=== PATIENT | male | born 1965 | race Caucasian/White ===

== ENCOUNTER 2019-10-22 15:59 | Emergency (ER) | payer SELFPAY ==
[2019-10-22 16:43] LABS: Absolute Lymphocytes (CBC) 0.9 K/uL (0.7-4.9); Basophils % 2.1 % (0-1.3); Hematocrit 48.8 % (39.6-49.0); Lymphocytes % 18.4 % (15.3-44.8); MPV 8.1 fL (7.6-11.3); RBC Red Blood Cell Count 5.09 M/uL (4.33-5.43)
[2019-10-22] MEDS ORDERED: NA CHLORIDE 0.9% 1,000 ML ONE (16:53)
[2019-10-22 17:01] LABS: ALT/SGPT 37 U/L (12-78); AST/SGOT 44 U/L (15-37); Albumin 3.1 g/dL (3.4-5.0); Alkaline Phosphatase 87 U/L (45-117); BUN Blood Urea Nitrogen 11 mg/dL (7-18); Bicarbonate 26 mmol/L (21-32); Bilirubin Direct 0.2 mg/dL (0-0.2); Bilirubin Total 0.6 mg/dL (0.2-1.0); Glucose Level 97 mg/dL (74-106); Lipase 426 U/L (73-393); Potassium 3.3 mmol/L (3.5-5.1); Protein, Total 7.6 g/dL (6.4-8.2); Sodium Level 139 mmol/L (136-145)
--- NOTE | 2019-10-22 17:48 | RAD REPORT ---
EXAM DESCRIPTION: CT - Abdomen Pelvis W Contrast - 10/22/2019 5:28 pm CLINICAL HISTORY: ABD PAIN, fever, diarrhea COMPARISON: No comparisons TECHNIQUE: Biphasic, helical CT imaging of the abdomen and pelvis was performed following 100 ml non -ionic IV contrast. Oral contrast was given. All CT scans are performed using dose optimization technique as appropriate and may include automated exposure control or mA/KV adjustment according to patient size. FINDINGS: No suspicious findings in the lung bases. Diffuse fatty infiltration present in the liver. No focal liver lesion identified. Portal vein is nor mal. No splenic abnormality seen. Accessory splenic nodule is present. No acute pancreatic process. G allbladder and biliary tree are also without suspicious finding. Symmetric renal function is seen with no hydronephrosis or suspicious renal mass. No pyelonephritis o r acute parenchymal process. Parapelvic cysts are present. No acute bladder abnormality. No adrenal a bnormalities. No stomach or small bowel abnormality. There is no appendicitis. Cecum to splenic flexure of the colo n shows no significant finding. Circumferential wall thickening involves the rectum, sigmoid colon an d distal descending colon. There is stranding in the adjacent. No focal mass lesion. No free air, fr ee fluid or pneumatosis. No hernia, mass or bulky lymphadenopathy. No suspicious bony findings. IMPRESSION: Nonspecific colitis pattern involving the rectum, sigmoid colon and distal portion of th e descending colon. No free air, mass or other emergent finding. Diffuse fatty infiltration the liver.
--- NOTE | 2019-10-22 18:00 | EDPHYS ---
Physician Documentation [facility] Name: Beto Soto Age: 54 yrs Sex: Male : 1965 Arrival Date: 10/22/2019 Time: 16:02 Bed 13 Private MD: ED Physician Georges Castellon HPI: 10/21 17:04 This 54 yrs old Male presents to ER via Ambulatory with complaints of pm1 Abdominal Pain, Diarrhea, Fever. 17:04 The patient presents with abdominal pain in the lower abdomen. Onset: The pm1 symptoms/episode began/occurred abdominal pain onset 2 days ago. Diarrhea 10 days ago. Fever onset 3 days ago. The symptoms do not radiate. Associated signs and symptoms: Pertinent positives: diarrhea, Cough, Pertinent negatives: nausea and vomiting, chest pain, shortness of breath. The symptoms are described as sharp. Modifying factors: The symptoms are alleviated by nothing, the symptoms are aggravated by nothing. Severity of pain: in the emergency department the pain Worse but improved from last night. The patient has experienced a previous episode, and the symptoms today are exactly the same, March last year. Saw multiple physicians, had CT, EGD, labs and biopsy of lymph nodes in abdomen. No conclusive findings and the symptoms resolved. The patient has not recently seen a physician, has an appointment scheduled, Dr. Fernandez. Patient had a cough in addition to his abdomina pain, fever, and diarrhea. He got swabbed for COVID-19 and received his results today - negative. Since the result is negative he came to the ER to get his abdominal pain evaluted. Historical: - Allergies: 16:09 Sulfa (Sulfonamide Antibiotics); ll1 16:09 flu vaccine; ll1 - PMHx: 16:09 Hypertension; ll1 - PSHx: 16:09 shoulder sx; ll1 - Immunization history:: Flu vaccine is not up to date. - Social history:: Smoking status: Patient denies any tobacco usage or history of. Patient uses alcohol, admits to "couple of beers" a day. Patient/guardian denies using IV drugs. ROS: 17:11 Constitutional: Positive for fever, Negative for body aches. pm1 17:12 Neck: Negative for injury, pain, and swelling, Cardiovascular: Negative for chest pain, pm1 palpitations, and edema. 17:12 Back: Negative for injury and pain. 17:12 MS/Extremity: Negative for injury and deformity, Skin: Negative for injury, rash, and discoloration. 17:12 Neuro: Negative for headache, weakness, numbness, tingling, and seizure. 17:12 Respiratory: Positive for cough, Negative for shortness of breath. 17:12 Abdomen/GI: Positive for abdominal pain, diarrhea, Negative for nausea and vomiting, constipation. Exam: 17:12 Constitutional: This is a well developed, well nourished patient who is awake, alert, pm1 and in no acute distress. Head/Face: Normocephalic, atraumatic. Chest/axilla: Normal chest wall appearance and motion. Nontender with no deformity. No lesions are appreciated. Abdomen/GI: Soft, non-tender, with normal bowel sounds. No distension or tympany. No guarding or rebound. No evidence of tenderness throughout. 17:12 Back: No spinal tenderness. No costovertebral tenderness. Full range of motion. Skin: Warm, dry with normal turgor. Normal color with no rashes, no lesions, and no evidence of cellulitis. MS/ Extremity: Pulses equal, no cyanosis. Neurovascular intact. Full, normal range of motion. 17:12 Cardiovascular: Exam negative for acute changes, edema, Rate: normal, Rhythm: regular, Pulses: no pulse deficits are appreciated, Edema: is not appreciated. 17:12 Respiratory: Exam negative for acute changes, respiratory distress, shortness of breath, wheezing. 17:12 Neuro: Exam negative for acute changes, Orientation: is normal, Motor: is normal, moves all fours. Vital Signs: 14:15 BP 190 / 87; Pulse 67; Resp 18; Pulse Ox 100% ; ah 16:05 BP 124 / 80; Pulse 98; Resp 16; Temp 98.4; Pulse Ox 100% ; Weight 96.16 kg; Height 5 ll1 ft. 9 in. (175.26 cm); Pain 5/10; 16:45 BP 112 / 75; Pulse 77; Resp 16; Pulse Ox 96% ; ah 18:39 BP 124 / 80; Pulse 64; Resp 17; Pulse Ox 100% ; ah 16:05 Body Mass Index 31.31 (96.16 kg, 175.26 cm) ll1 MDM: 16:11 Patient medically screened. pm1 17:15 Data reviewed: vital signs. Data interpreted: Pulse oximetry: on room air is 100 %. pm1 Interpretation: normal. 17:55 Counseling: I had a detailed discussion with the patient and/or guardian regarding: the pm1 historical points, exam findings, and any diagnostic results supporting the discharge/admit diagnosis, lab results, radiology results, the need for outpatient follow up, for definitive care, a schedule manager. 18:24 Physician consultation: Fransisco Fernandez MD Following up with the patient's findings in pm1 the ER. Discussed with him the plan of care and he agrees with antibiotics and follow up with PCP or him in 1 week. 18:42 ED course: Patient without any bowel movement in the ER. If he did would send stool pm1 sample. 10/21 16:21 Order name: Basic Metabolic Panel; Complete Time: 17:03 pm1 10/21 16:21 Order name: CBC with Diff; Complete Time: 17:03 pm1 10/21 16:21 Order name: Creatinine for Radiology; Complete Time: 17:03 pm1 10/21 16:21 Order name: Hepatic Function; Complete Time: 17:03 pm1 10/21 16:21 Order name: Lipase; Complete Time: 17:03 pm1 10/21 18:15 Order name: Urine Dipstick--Ancillary (enter results); Complete Time: 18:36 eb 10/21 16:21 Order name: IV Saline Lock; Complete Time: 16:37 pm1 10/21 16:21 Order name: Labs collected and sent; Complete Time: 16:37 pm1 10/21 16:21 Order name: Urine Dipstick-Ancillary (obtain specimen); Complete Time: 18:16 pm1 10/21 16:21 Order name: CT Abd/Pelvis - IV Contrast Only; Complete Time: 17:53 pm1 10/21 16:21 Order name: NPO; Complete Time: 16:30 pm1 Administered Medications: 16:52 Drug: NS 0.9% 1000 ml Route: IV; Rate: 1000 ml; Site: right antecubital; 19:21 Follow up: Response: No adverse reaction 18:10 Drug: Flagyl 500 mg Volume: 100 ml; Route: IVPB; Rate: 200 ml/hr; Infused Over: 30 ah mins; Site: right antecubital; 19:21 Follow up: Response: No adverse reaction 18:10 Drug: Cipro 500 mg Route: PO; 19:21 Follow up: Response: No adverse reaction Disposition: 10/22/19 17:59 Discharged to Home. Impression: Colitis, Diarrhea, unspecified. - Condition is Stable. - Discharge Instructions: Food Choices to Help Relieve Diarrhea, Adult, Diarrhea, Adult, Colitis. - Prescriptions for Flagyl 500 mg Oral Tablet - take 1 tablet by ORAL route every 8 hours for 10 days; 30 tablet. Cipro 500 mg Oral Tablet - take 1 tablet by ORAL route every 12 hours for 10 days; 20 tablet. Bentyl 20 mg Oral Tablet - take 1 tablet by ORAL route every 6 hours As needed; 20 tablet. - Medication Reconciliation Form, Thank You Letter, Antibiotic Education, Prescription Opioid Use form. - Follow up: Emergency Department; When: As needed; Reason: Worsening of condition. Follow up: Private Physician; When: 2 - 3 days; Reason: Recheck today's complaints, Continuance of care, Re-evaluation by your physician. - Problem is new. - Symptoms have improved. Addendum: 10/24/2019 07:44 Co-signature as Attending Physician, Georges Castellon MD I agree with the assessment and k dr plan of care. Signatures: Dispatcher [employer] EDMS Georges Castellon MD MD [facility] Vega Adler NP FARM HELPER pm1 Aurea Melendez, RN RN Obed Osorio RN RN ll1 Corrections: (The following items were deleted from the chart) 10/21 18:00 17:59 10/22/2019 17:59 Discharged to Home. Impression: Colitis. Condition is Stable. pm1 Forms are Medication Reconciliation Form, Thank You Letter, Antibiotic Education, Prescription Opioid Use. Follow up: Emergency Department; When: As needed; Reason: Worsening of condition. Follow up: Private Physician; When: 2 - 3 days; Reason: Recheck today's complaints, Continuance of care, Re-evaluation by your physician. Problem is new. Symptoms have improved. pm1 19:24 18:00 10/22/2019 17:59 Discharged to Home. Impression: Colitis; Diarrhea, unspecified. Condition is Stable. Discharge Instructions: Colitis. Prescriptions for Flagyl 500 mg Oral Tablet - take 1 tablet by ORAL route every 8 hours for 10 days; 30 tablet, Bentyl 20 mg Oral Tablet - take 1 tablet by ORAL route every 6 hours As needed; 20 tablet, Cipro 500 mg Oral Tablet - take 1 tablet by ORAL route every 12 hours for 10 days; 20 tablet. and Forms are Medication Reconciliation Form, Thank You Letter, Antibiotic Education, Prescription Opioid Use. Follow up: Emergency Department; When: As needed; Reason: Worsening of condition. Follow up: Private Physician; When: 2 - 3 days; Reason: Recheck today's complaints, Continuance of care, Re-evaluation by your physician. Problem is new. Symptoms have improved. pm1
--- NOTE | 2019-10-22 18:00 | ER ---
Nurse's Notes [facility] Name: Beto Soto Age: 54 yrs Sex: Male : 1965 Arrival Date: 10/22/2019 Time: 16:02 Bed 13 Private MD: Diagnosis: Colitis;Diarrhea, unspecified Presentation: 10/21 16:05 Chief complaint: Patient states: Diarrhea with abd pain and fever for 10 days. Chief ll1 complaint: Patient states: COVID test negative. Coronavirus screen: Coronavirus screen: Proceed with normal triage. Patient reports a cough. Patient denies shortness of breath or difficulty breathing. Patient reports a measured and/or subjective temperature greater than 100.4F. Patient denies travel on a cruise ship or to a country [facility] currently lists as an affected area. Patient denies contact with known and/or suspected case of COVID-19. Ebola Screen: Patient denies travel to an Ebola-affected area in the 21 days before illness onset. Initial Sepsis Screen: Does the patient meet any 2 criteria? Temp <36.0*C (96.8*F)) or > 38.3*C (100.9*F). Does the patient have a suspected source of infection? Yes: Acute abdominal pain. Risk Assessment: Do you want to hurt yourself or someone else? Patient reports no desire to harm self or others. Onset of symptoms was October 12, 2019. 16:05 Method Of Arrival: Ambulatory ll1 16:05 Acuity: ZEV 3 ll1 Historical: - Allergies: 16:09 Sulfa (Sulfonamide Antibiotics); ll1 16:09 flu vaccine; ll1 - PMHx: 16:09 Hypertension; ll1 - PSHx: 16:09 shoulder sx; ll1 - Immunization history:: Flu vaccine is not up to date. - Social history:: Smoking status: Patient denies any tobacco usage or history of. Patient uses alcohol, admits to "couple of beers" a day. Patient/guardian denies using IV drugs. Screenin:12 Abuse screen: Denies threats or abuse. Nutritional screening: No deficits noted. Tuberculosis screening: No symptoms or risk factors identified. Fall Risk None identified. Assessment: 16:15 General: Appears in no apparent distress. Behavior is calm, cooperative. Pain: ah Complains of pain in right lower quadrant and left lower quadrant Pain does not radiate. Quality of pain is described as crampy, sharp, Pain began 3 days ago Also complains of. Neuro: Level of Consciousness is awake, alert, Oriented to person, place, time, situation. Cardiovascular: Heart tones S1 S2 present Capillary refill < 3 seconds Patient's skin is warm and dry. Pulses are palpable in right radial artery, right dorsalis pedis artery, left radial artery and left dorsalis pedis artery. Respiratory: Airway is patent Respiratory effort is even, unlabored, Respiratory pattern is regular, symmetrical, Breath sounds are clear bilaterally. GI: Abdomen is distended, Bowel sounds present X 4 quads. Reports diarrhea, since 10 days Parent/caregiver reports the patient having pain. : No signs and/or symptoms were reported regarding the genitourinary system. EENT: No signs and/or symptoms were reported regarding the EENT system. Derm: No signs and/or symptoms reported regarding the dermatologic system. Musculoskeletal: No signs and/or symptoms reported regarding the musculoskeletal system. 17:30 Reassessment: Denies pain at this time. No needs voiced. 18:30 Reassessment: Finishing IV medications at this time and then will be ready for discharge. 19:23 Reassessment: Discharge instructions given at this time and education on prescriptions. Pt voiced understanding. Vital Signs: 14:15 BP 190 / 87; Pulse 67; Resp 18; Pulse Ox 100% ; ah 16:05 BP 124 / 80; Pulse 98; Resp 16; Temp 98.4; Pulse Ox 100% ; Weight 96.16 kg; Height 5 ll1 ft. 9 in. (175.26 cm); Pain 5/10; 16:45 BP 112 / 75; Pulse 77; Resp 16; Pulse Ox 96% ; ah 18:39 BP 124 / 80; Pulse 64; Resp 17; Pulse Ox 100% ; ah 16:05 Body Mass Index 31.31 (96.16 kg, 175.26 cm) ll1 ED Course: 16:02 Patient arrived in ED. mr 16:08 Triage completed. ll1 16:10 Vega Adler NP is PHCP. pm1 16:10 Arm band placed on Patient placed in an exam room, on a stretcher. ll1 16:11 Georges Castellon MD is Attending Physician. pm1 16:11 Aurea Melendez, RN is Primary Nurse. 16:30 Patient has correct armband on for positive identification. Bed in low position. Call light in reach. 16:35 Initial lab(s) drawn, by me, sent to lab. Inserted saline lock: 22 gauge in right lt1 antecubital area, using aseptic technique. 16:36 Call light in reach. Door closed. Lights dimmed. Warm blanket given. lt1 17:29 CT Abd/Pelvis - IV Contrast Only In Process Unspecified. EDID 17:29 CT completed. Patient tolerated procedure well. Patient moved back from CT. mw3 19:20 No provider procedures requiring assistance completed. IV discontinued, intact, bleeding controlled, No redness/swelling at site. Pressure dressing applied. Administered Medications: 16:52 Drug: NS 0.9% 1000 ml Route: IV; Rate: 1000 ml; Site: right antecubital; 19:21 Follow up: Response: No adverse reaction 18:10 Drug: Flagyl 500 mg Volume: 100 ml; Route: IVPB; Rate: 200 ml/hr; Infused Over: 30 ah mins; Site: right antecubital; 19:21 Follow up: Response: No adverse reaction 18:10 Drug: Cipro 500 mg Route: PO; 19:21 Follow up: Response: No adverse reaction Outcome: 17:59 Discharge ordered by . pm1 19:20 Discharged to home ambulatory. 19:20 Condition: good 19:20 Discharge instructions given to patient, Instructed on discharge instructions, follow up and referral plans. no drinking with medication, medication usage, Demonstrated understanding of Prescriptions given X 3. 19:24 Patient left the ED. Signatures: Dispatcher [employer] EDID Evelia Ellis Patrick, TRAFFIC TECHNICIAN TRAFFIC TECHNICIAN pm1 Carol Magana mw3 Елена Hartley lt1 Aurea Melendez, RN RN Obed Osorio RN RN ll1 Corrections: (The following items were deleted from the chart) 18:34 18:33 BP 190 / 87; Pulse 67bpm; Resp 18bpm; Pulse Ox 100%; [facility]
[2019-10-22] MEDS ORDERED: CIPROFLOXACIN HCL 500 MG TAB ONE (18:14)
[2019-10-22] MEDS ORDERED: METRONIDAZOLE 500mg IVPB 500 MG/100 ML BAG IV ONE (18:15)
[2019-10-22 18:22] LABS: Urine Blood NEGATIVE (NEG); Urine Glucose TRACE (NEG); Urine Protein NEGATIVE (NEG)
[2019-10-22 19:32] VITALS: TEMP 98.4
[2019-10-22 19:35] VITALS: BP 124/80; O2SAT 100
== END 2019-10-22 19:24 | disposition home or self-care (01) ==
LOC: ER 15:59
DX: K52.9 Noninfective gastroenteritis and colitis, unspecified (principal); K76.0 Fatty (change of) liver, not elsewhere classified
CPT/HCPCS: 36415; 74177; 80048; 80076; 81003; 83690; 85025; 96374; 99284; J7030; Q9967